=== PATIENT | female | born 1965 | race Caucasian/White ===

== ENCOUNTER 2023-01-11 23:00 | Emergency (ER) | payer OTHER ==
[2023-01-11] MEDS ORDERED: Ondansetron ODT 4 MG TAB ONE (23:43)
[2023-01-12 00:04] LABS: SARS-CoV-2 NAA Rapid Test DETECTED (NotDetected)
== END 2023-01-12 00:23 | disposition home or self-care (01) ==
LOC: ERS 23:00
DX: U07.1 COVID-19 (principal)
CPT/HCPCS: 99283; Q0162